=== PATIENT | male | born 1950 | race Caucasian/White ===

== ENCOUNTER → 2018-01-12 | Outpatient (CLI) | payer OTHER ==
[~2018-01-12] MED LIST: ASPIR 8181 MG PO; ATORVASTATIN CA40 MG PO; DICLOFENAC SODI25 MG PO; FLEXERIL PO; FLOMAX0.4 MG PO; GLIPIZIDE XL10 MG PO; HYDROCODONE-APA1 TA1 PO; LIORESAL 10 MG10 MG PO; METFORMIN HCL500 MG PO; MOBIC15 MG PO; NORCO 10-325 T1 EACH PO; OMEGA 3-6-9 11200 M1 PO; OSTEO BI-FLEX1 EAC1 PO; PERCOCET 5-3251 EACH PO; PRILOSEC 20 MG20 MG PO; STOOL SOFTENER100 MG PO; SUPER B COMPLE150 MG PO; VITAMIN D3 PO; ZANAFLEX4 M1 PO; ZANTAC 150MG T150 MG PO
--- NOTE | 2018-02-15 10:00 | PAINCON ---
[address] [address] PAIN MANAGEMENT CONSULTATION Name: KENSCOUT Coburn Room: [facility] Lerner#: [id number] Admission: 01/12/18 Attend Phys: Leo Skinner MD Discharge: Date of : 48 Report #: [id number] THIS REPORT FOR: //name// CC: Reza Skinner DATE OF SERVICE: 01/12/2018 CHIEF COMPLAINT: Low back pain with pain down the left leg. HISTORY OF PRESENT ILLNESS: The patient is a 67-year-old gentleman who has been seen and followed in the pain clinic by Dr. Kvng Kirby. He has a history of lumbosacral spondylosis, lumbar radiculopathy and is status post decompressive laminectomy with continued axial back pain. He has undergone epidural steroid injections. He has also had facet joint injections. The patient states that he was doing reasonably well. He hurt his back while picking his [id number] off the floor. Since that time, he has had pain that is radiating into his left side. His left leg is excruciating at times. Rates it as an 8/10. Notes that activity, walking, sitting, standing for a prolonged period of time, climbing stairs, going from a sitting to a standing position, bending and lifting are all problematic. Notes some improvement after applying heat and cold to his back. Rest can be helpful. He has tried a TENS unit. Denies any change in bowel or bladder habit. At this juncture, he has returned to the pain clinic for evaluation. He has been taking Tylenol and ibuprofen. Hydrocodone and oxycodone have been alternating. He rarely uses these medications. ALLERGIES: No known drug allergies. MEDICATIONS: Aspirin 81 mg, metformin 500 mg b.i.d., glycoside XL 10 mg, Flomax 0.4 mg, stool softener p.r.n. Osteo Bi-Flex, omega 3 1200 mg daily, D3 2000 international units, Super B complex, oxycodone and hydrocodone 10/325, Flexeril 10 mg p.r.n., Lipitor 40 mg. Medications used in the past - baclofen 10 mg t.i.d., Voltaren 25 mg t.i.d., ranitidine 150 mg b.i.d., Zanaflex 4 mg. PAST MEDICAL HISTORY: Diabetes, asthma, stomach problems, stroke. PAST SURGICAL HISTORY: Hernia as a child, arthroscopic right knee surgery in 1985, left shoulder surgery in 2006. SOCIAL HISTORY: He is retired. REVIEW OF SYSTEMS: As per HPI. LABORATORY DATA: No [place] [address] PAIN MANAGEMENT CONSULTATION Name: KENSCOUT Room: [facility]#: [id number] Admission: 01/12/18 Attend Phys: Leo Skinner MD Discharge: Date of : 48 Report #: [id number] PAIN CLINIC ASSESSMENT: 1. The patient has some arthritic changes in his back. He is not being treated for rheumatoid arthritis. 2. Height 5 feet 8 inches, weight 172 pounds, BMI 26.2. 3. Vital signs: Blood pressure 102/72, heart rate 91, respiratory rate 16, room air saturation 96%, temperature 97.7, pain score 8/10. 4. Blood thinner. The patient is not on a blood thinner medication. 5. Fall history. The patient has not fallen in the last 3 months. 6. History of hypertension. The patient has not been treated for hypertension. 7. Opioid medications greater than 6 weeks. The patient is not receiving opioid medications on a regular basis. 8. Risk assessment tool. 5. Functional assessment tool. 6. Recreational drug use. The patient denies use of recreational drugs. 7. Tobacco: The patient denies use of tobacco. 8. Alcoholic beverages: The patient denies use of alcoholic beverages on a regular basis. PHYSICAL EXAMINATION: GENERAL: The patient is a well-developed, well-nourished, white male. Appears his stated age. He is alert and oriented x 3. Affect is appropriate. HEENT: Normocephalic, atraumatic. Extraocular eye muscles intact. Sclerae nonicteric. Mucous membranes are moist. NECK: Without adenopathy or JVD. LUNGS: Clear to auscultation. HEART: Regular rate. ABDOMEN: Nontender. MUSCULOSKELETAL: Without significant scoliosis, kyphosis or lordosis. The patient has a well-healed scar in the midline area of his low back. Complains of pain and discomfort, which is radiating down into the L5-S1 area on the left side with numbness and weakness in his left leg. IMPRESSION: 1. Lumbar radiculopathy with pain radiating down into his left leg after lifting his prjbzy-rh-jpu. 2. Diabetes. 3. Asthma. 4. Stomach problems. 5. Stroke RECOMMENDATIONS: The patient is having pain and discomfort, which is radiating down into his left leg. He has undergone injections in the past and gleaned benefits from these. Has pain and discomfort down the L5-S1 dermatomal distribution. He would like to proceed with an injection. He describes his pain as excruciating. The patient would also like a renewal of his medications [address] [address] PAIN MANAGEMENT CONSULTATION Name: SCOUT ROGERS Room: [facility] Lerner#: [id number] Admission: 01/12/18 Attend Phys: Leo Skinner MD Discharge: Date of : 48 Report #: [id number] of hydrocodone and we will provide the patient with a nonsteroidal anti-inflammatory medication, Mobic. He will monitor his GI for symptoms of irritation from the Mobic. We have discussed the possible complications of an epidural steroid injection. They include but are not limited to infection, increased muscle soreness, headache, bleeding, worsening of pain, no improvement in pain and the patient elects to proceed. PROCEDURE NOTE: The patient was taken to the procedure area. He was then assisted in getting on the examination table. He was placed in the prone position. His back was sterilely prepped with a Betadine solution. Fluoroscopy using anterior, posterior as well as lateral viewing were used to implement the injection. His back was sterilely prepped at the L5-S1 area. A left paraspinal approach was taken. A 0.25% bupivacaine was infiltrated into this area. A 17-gauge Tuohy with loss of resistance technique was used to gain access to the epidural space. There was no CSF, heme or paresthesia. Total of 80 mg Depo-Medrol, 40 mg triamcinolone and 2 mL of 0.25% bupivacaine was injected. The patient tolerated the procedure well. There were no complications. He remained in the pain clinic for an appropriate amount of time. He will follow up in the future as needed. We would like to thank you for letting us participate in his care. We hope he continues to improve. <ELECTRONICALLY SIGNED> By: Leo Skinner MD 02/15/18 [id number]. Darnell Skinner MD /PMT
== END | disposition home or self-care (01) ==
LOC: M.PC 04:50
DX: M54.16 Radiculopathy, lumbar region (principal); G89.29 Other chronic pain; E11.9 Type 2 diabetes mellitus without complications; J45.909 Unspecified asthma, uncomplicated; Z79.82 Long term (current) use of aspirin; Z79.899 Other long term (current) drug therapy; Z79.84 Long term (current) use of oral hypoglycemic drugs; Z86.73 Personal history of transient ischemic attack (TIA), and cerebral infarction without residual deficits; Z87.19 Personal history of other diseases of the digestive system; Z98.890 Other specified postprocedural states; Z79.891 Long term (current) use of opiate analgesic